=== PATIENT | female | born 1950 | race Caucasian/White ===

== ENCOUNTER 2019-01-23 09:59 | Outpatient (REF) | payer OTHER, SELFPAY ==
[2019-01-23 13:57] LABS: Anion Gap 8.7 mmol/L (3-11); BUN 15 mg/dL (7-18); CO2 28.3 mmol/L (21.0-32.0); CREATININE 0.76 mg/dL (0.55-1.02); Calcium 9.2 mg/dL (8.5-10.1); Chloride 104 mmol/L (98-107); Cholesterol 235 mg/dL (50-200); Glucose 90 mg/dL (70-100); HDL Cholesterol 72 mg/dL (40-60); LDL CHOLESTEROL 143 mg/dL (<100); Potassium 3.8 mmol/L (3.5-5.1); Sodium 141 mmol/L (136-145); Triglyceride 86 mg/dL (30-150)
== END 2019-01-23 10:19 ==
LOC: NCHCN 09:59
PROVIDERS: PCP Family Medicine; Visit Provider Nurse Practitioner Family
DX: E78.5 Hyperlipidemia, unspecified (principal)
CPT/HCPCS: 80048; 80061; 83721

== ENCOUNTER 2019-01-31 01:04 | Outpatient (CLI) | payer OTHER, SELFPAY ==
--- NOTE | 2019-01-31 13:11 | DI.MAMMO_ITS ---
SYMPTOMS/DIAGNOSIS: SCREENING, Z12.39 MAMMOGRAM: Mammograms were interpreted according to the usual protocol including computer analysis with CAD system, tomosynthesis and C view imaging. Comparison is made with exams from 2010 through 2017. The breasts are composed of fatty density tissue. There are no suspicious masses or suspicious microcalcifications. There has been no significant change. IMPRESSION: Category I, negative mammogram. Yearly screening mammography is recommended. Breast density A. MQSA ASSESSMENT OF FINDINGS: Negative. Category 1. Patient will receive a letter notifying them of these results. BI-RAD category A. The breasts are almost entirely fatty.
== END 2019-01-31 01:24 ==
PROVIDERS: PCP Family Medicine; Visit Provider Nurse Practitioner Family
DX: Z12.31 Encounter for screening mammogram for malignant neoplasm of breast (principal)
CPT/HCPCS: 77063; 77067

== ENCOUNTER → 2019-05-04 10:46 | Outpatient (BNVA) | payer OTHER, SELFPAY | PROVIDERS: PCP Family Medicine; Referring Provider Family Medicine; Visit Provider Physical Therapy Assistant | DX: Z12.11 Encounter for screening for malignant neoplasm of colon (principal); Z86.010 Personal history of colon polyps ==

== ENCOUNTER 2019-05-15 09:37 | Day surgery (SDC) | payer OTHER, SELFPAY ==
--- NOTE | 2019-05-15 07:00 | COLE_ITS ---
Date of service: 05/15/19 Time of Service: 10:45 Colonoscopy Report Date of procedure: 05/15/19 Pre-op diagnosis general: Hx of tubular adenoma Post-op diagnosis procedure note: other (Colorectal polyps) Procedure: Colonoscopy with polypectomy Surgeon: Bina Clayton Anesthesia proc note operative: other (General/ ASA 2/Marcella Phoenix CRNA) Estimated blood loss (mL): 3 Pathology: other (transverse colon polyp x2, rectal polyp x2) Complications: None Disposition: same day Indications: Mrs. Lundberg is a pleasant 68 year old female seen in the office for a colonoscopy. She was noted to have a tubular adenoma in 2008. Risks, benefits and complications have been reviewed. Complications include but are not limited to bleeding, pain, perforation, missed small lesion/polyp, sore throat, aspiration and adverse reaction to the medications. Questions were entertained and answered to their satisfaction and they wished to proceed. No guarantees were given or implied. Prep: Miralax/Dulcolax Procedure Start Time: 10:45 Procedure End Time: 11:19 Retraction Time: 27 minutes Findings: 2 sessile polyps in the transverse colon 2 rectal polyps in the rectum Procedure Description: After informed consent was obtained the patient was taken to the procedure room and placed in a left decubitous position. Monitors were applied and a time out was done. The patients name, date of , procedure, allergies to medications and metal in their body was reviewed. The patient was then sedated. Once sedated and comfortable a rectal exam was done. External exam was normal. Internal exam revealed a normal sphincter tone and no palpable mas ses. The scope was then introduced and retro-flexed. No internal hemorrhoids were identified. The scope was then advanced to the cecum without difficulty. The TI and appendiceal orifice were identified. The prep was adequate. The scope was then slowly retracted over 27 minutes back into the rectum. Polyps were removed x2 with hot snare and cold forceps in the transverse colon. 2 polyps w ere removed with cold forceps in the rectum. The scope was removed and the patient was woken up and taken back to Same day surgery in stable condition. The patient tolerated the procedure well and there were no immediate complications. Follow up: The patient should follow up in 3-5 years unless they develop changes in bowel habits or other new gastrointestinal complaints.
--- NOTE | 2019-05-15 07:01 | W.PM.DSUDISC ---
Discharge Plan Disposition Patient Disposition: HOME Condition: Good Discharge Details Reason For Visit: Hx of colon polyps Attending Provider: Bina Clayton Primary Care Provider: Stephany Brantley Home Meds and New Rx's Prescriptions: Continued ibuprofen 200 mg tablet 200 mg PO PRN RF: 0 Discontinued polyethylene glycol 3350 17 gram/dose powder 238 g PO ONCE Qty: 238 RF: 0 bisacodyl [Dulcolax (bisacodyl)] 5 mg tablet,delayed release (DR/EC) 5 mg PO ONCE Qty: 4 RF: 0 Discharge Instructions Instructions: Colonoscopy (GEN), Colorectal Polyps (GEN) Additional Instructions: Findings: 4 polyps were removed Follow up: 3-5 years Please call if you develop: fevers >101.5 Nausea or Vomiting Abdominal pain that is not transient DAY SURGERY UNIT POST COLONOSCOPY INSTRUCTIONS 1. Because there will be medication in your system for the next 24 hours, you may feel a little sleepy. Your coordination will be affected. Therefore: a. Do not drive or operate dangerous equipment for 24 hours. b. Do not drink alcohol beverages for 24 hours (not even beer). c. Plan to go home and rest for the day. 2. Generally there are no restrictions on your activity after a day or so has gone by, but you may feel a bit fatigued for a few days. 3 After you arrive home you may have a light meal and return to a normal diet as you can tolerate it without feeling sick to your stomach. 4. After surgery, you may feel pain or discomfort. This should be only transient, but if it persists please contact your doctor. 5. If there are any questions regarding the findings of your procedure, please feel free to contact your doctor. 6. If you are unable to contact your doctor with a problem, contact the hospital at [phone]. 7. Continue all your regular medications unless directed otherwise. I understand the above instructions and have no questions. Signature of Patient or Responsible Adult Escort Date/Time Name of Responsible Adult Escort Signature of Nurse Date/Time Activity:: Activity as Tolerated Diet:: As Tolerated Discharge Orders Discharge Orders: Discharge Order (Routine); Ordered 05/15/19 Ordered By: Bina Clayton DS: Diagnosis Discharge Diagnosis (1) History of colonoscopy: Status: Chronic (2) Colorectal polyps:
[2019-05-15 10:01] VITALS: BP 175/81; PULSE 63; RESP 18; TEMP 36.1; O2SAT 98
[2019-05-15] MEDS: Lactated Ringers 1,000 ML 80 ML IV (10:23)
--- NOTE | 2019-05-15 10:57 | BOWEL_PTH ---
PATIENT: Elaine Lundberg LOC: [facility] U#:[id number] AGE/SX: 68/F ROOM: RE05/15/[address]: Bina Clayton MD : 1950 BED: DIS: 05/15/2019 SPEC #: [id number] RECD: 05/15/19 12:55 STATUS: PEGGY REQ #: [id number] STARLA: 05/15/19 10:[address]: Bina Clayton DEPT: Surgical Specimen RECD BY: Jennifer Clayton ENTERED: 05/15/19 12:56 SP TYPE: Bowel OTHR DR: Stephany Brantley Tissues: 1 - BIOPSY BOWEL 2 - BIOPSY BOWEL Procedures: GROSS AND MICRO LEVEL 4 Comments: [id number]
[2019-05-15 11:49] VITALS: BP 135/78; PULSE 53; RESP 16; TEMP 35.8; O2SAT 99
== END 2019-05-15 12:00 | disposition home or self-care (01) ==
LOC: SUR 09:45
PROVIDERS: PCP Family Medicine; Visit Provider Surgery
PROC: 0DJD8ZZ Inspection of Lower Intestinal Tract, Via Natural or Artificial Opening Endoscopic (ICD-10-PCS; CPT 45378; principal; 2019-05-15 11:15)
DX: Z12.11 Encounter for screening for malignant neoplasm of colon (principal); Z86.010 Personal history of colon polyps; Z87.19 Personal history of other diseases of the digestive system; D12.3 Benign neoplasm of transverse colon; K62.1 Rectal polyp
CPT/HCPCS: 45385; 45380; 88305

== ENCOUNTER 2021-06-10 09:37 | Outpatient (REF) | payer OTHER, SELFPAY ==
[2021-06-10 17:25] LABS: Anion Gap 5.8 mmol/L (3-11); BUN 12 mg/dL (7-18); CO2 32.2 mmol/L (21.0-32.0); CREATININE 0.8 mg/dL (0.55-1.02); Calcium 8.9 mg/dL (8.5-10.1); Calculated LDL 206 mg/dL (<100); Chloride 104 mmol/L (98-107); Cholesterol 309 mg/dL (<200); Glucose 88 mg/dL (74-106); HDL Cholesterol 78 mg/dL (40-60); Potassium 4.2 mmol/L (3.5-5.1); Sodium 142 mmol/L (136-145); Triglyceride 128 mg/dL (<150)
== END 2021-06-10 09:38 | disposition home or self-care (01) ==
LOC: NCHCN 09:37
PROVIDERS: PCP Family Medicine; Referring Provider Nurse Practitioner Family; Visit Provider Nurse Practitioner Family
DX: E78.5 Hyperlipidemia, unspecified (principal); Z00.00 Encounter for general adult medical examination without abnormal findings
CPT/HCPCS: 80048; 80061

== ENCOUNTER 2022-01-21 14:50 | Outpatient (REF) | payer MEDICARE, SELFPAY ==
[2022-01-21 14:54] LABS: Anion Gap 8.2 mmol/L (3-11); BUN 14 mg/dL (7-18); CO2 29.8 mmol/L (21.0-32.0); CREATININE 0.8 mg/dL (0.55-1.02); Calculated LDL 159 mg/dL (<100); Chloride 103 mmol/L (98-107); Cholesterol 262 mg/dL (<200); Glucose 84 mg/dL (74-106); HDL Cholesterol 77 mg/dL (40-60); Potassium 4.1 mmol/L (3.5-5.1); Sodium 141 mmol/L (136-145); Triglyceride 130 mg/dL (<150)
== END 2022-01-21 14:51 | disposition home or self-care (01) ==
LOC: NCHCN 14:50
PROVIDERS: PCP Family Medicine; Visit Provider Nurse Practitioner Family
DX: E78.5 Hyperlipidemia, unspecified (principal)
CPT/HCPCS: 80048; 80061

== ENCOUNTER 2022-02-09 11:00 | Outpatient (CLI) | payer MEDICARE, SELFPAY ==
--- NOTE | 2022-02-09 10:45 | DI.RAD_ITS ---
Exam(s) XR HIP LT COMPLETE AP PELVIS EXAM: XR HIP LT COMPLETE AP PELVIS INDICATION: pain in hip. COMPARISON: No exams were available for comparison TECHNIQUE: 2D digital imaging was performed. Two views. FINDINGS: Hip joint spaces are well maintained. There is no significant acetabular spurring. There is mild sp urring at the margin of the left femoral head. There is some spurring at the inferior SI joints. Th ere is narrowing of the L5-S1 disc space. IMPRESSION: Mild degenerative changes of the left hip. DATA REPOSITORY: RADIATION DOSE DELIVERED:
== END 2022-02-09 11:01 | disposition home or self-care (01) ==
LOC: DIORS 11:01
PROVIDERS: PCP Family Medicine; Referring Provider Family Medicine; Visit Provider Physician Assistant Surgical
DX: M70.62 Trochanteric bursitis, left hip
CPT/HCPCS: 20610; 99214; 73502; J1040

== ENCOUNTER → 2022-04-08 00:29 | Outpatient (CLI) | payer MEDICARE, SELFPAY ==
--- NOTE | 2022-04-08 | DI.MAMMO_ITS ---
Exam(s) MAMMO SCREENING EXAM: MAMMO SCREENING CLINICAL HISTORY: SCREENING FOR BREAST CA, Z12.39 TECHNIQUE: Mammograms were interpreted according to the usual protocol including computer analysis w [employer] CAD system, tomosynthesis and C-view imaging. COMPARISON: 2012 through 2018 FINDINGS: The breasts are composed of mainly fatty density , Breast Density category A. No suspicious masses or suspicious microcalcifications are seen. No skin thickening or abnormal axillary lymph nodes are seen. There has been no significant change from prior exams. IMPRESSION: BI-RADS Category 1, Negative mammogram Yearly screening mammography is recommended. Breast Density - Category A, fatty density. A negative radiographic report should not delay biopsy if a dominant or clinically suspicious mass is present. Up to ten percent of cancers are not identified on mammography. A negative report may reinforce clinical impression. Adenosis and dense breasts may obscure an underlying neoplasm. False positive reports average 6 to 10%. Patient will receive a letter notifying them of these results.
--- OUTSIDE RECORDS SUMMARY | 2022-04-08 00:32 | XMS_ITS | Encounter Summary ---
:1950 Author Organization [facility] Address [address] [place] [address] Care Team Providers Name Role Phone Unknown, Provider Primary Care Provider Encounter Details Date Type Department Care Team Description 10/12/2005 Results Only [facility] - Stefan Cao MD Maple conversion [address] [place] [address] [id number] [phone] Social History Tobacco Use Types Packs/Day Years Used Date Never Assessed Sex Assigned at Date Recorded Not on file documented as of this encounter Plan of Treatment Not on filedocumented as of this encounter Procedures Procedure Name Priority Date/Time Associated Diagnosis Comme [facility] SURGICAL PATHOLOGY Routine 10/12/2005 0:00 EST Re sults for this procedure are i n the results section. documented in this encounter Results SURGICAL PATHOLOGY (10/12/2005 0:00 EST) Pathology Report: SURGICAL PATHOLOGY REPORT [facility] Reports generated via electronic interface contain charlotte ginal data; LAB however they are lacking the format of the original re port. Caution should be taken when reading/interpreting unfo rmatted reports. Name: ? ELAINE CLEMENTS ? Accession #: ? [id number] ? : ? 1950 (Age: 54) ??F ? Collect Date: ? 10/12/2005 ? Location: ? [facility] ? Receive Date: ? 10/13/19 06 ? Provider: LUISA CAO MD Copy to: NIKOLAI ALBERT MD ? Addendum ? Date Ordered: ? 11/20/2005 ? Status: Si gned Out ? Date Complete: ? 11/20/2005 ? By: Apryl Jhaveri ? Date Reported: ? 11/23/2005 ? Addendum Comment ? THIS SPECIMEN DOES NOT BELONG TO THIS [facility] On 10/28/05, we were informed by the [facility] laboratory that the date of and social security number on this report did no t match those of their patient. ??The case is re-ac cessioned to the correct patient as [id number]; charges are moved to the correct patient; the slides and block s are relabelled. /[facility] Document reviewed and electronically signed by: ? LIOR SONG MD for LAURE COLE MD ? Report date: 11/23/2005 By the signature above, the attending physician certif ies that he/she has personally conducted a gross and/or microscopic examin ation of the described specimens and rendered or confirmed the above diagnosi s. Final Pathologic Diagnosis: A. ?Colon, 20 cm, polyp, biopsy: 1. ?Tubulovillous adenoma. B. ?Colon, hepatic flexure, biopsies: 1. ?Adenocarcin dustin, invasive, moderately differentiated. ??See comment. Comment: ? Financial Specialist sectio ns of (B) have been reviewed at the intradepartmental consultation conference. ??(Dr. Cole)/[facility] Document reviewed and electronically signed by: LAURE COLE MD Report ??Date: 10/14/2005 14:16 By the signature above, the attending physician certif ies that he/she has personally conducted a gross and/or microscopic examin ation of the described specimens and rendered or confirmed the above diagnosi s. Specimen(s) Received: A. ?Colon lesion 20 cm, broad based 2 cm lesion (#1) B. ?Colon lesio n hepatic flexure (fungating, ulcerated lesion) (#2) Clinical History: ? Anemia; colonoscopy Gross Description: ? Received in Hollande' s fixative labeled Toño and colon polyp 20 cm are four pieces of soft tissue ranging from 0.2 x 0.2 x 0.2 cm to 0.4 x 0.3 x 0.2 cm. ??The specimen is entirely submitted as (A). Received in Hollande' s fixative labeled Toño and colon lesion hepatic flexure is a 1.1 x 0.5 x 0. 3 cm aggregate of medel-brown tissue. ??The specimen is submitted entirely as (B) following filtration. ??(Dr. Hudson-DOUG)/[facility] End of Report Specimen Performing Organization Address City/State/ZIP Code Phon e Number [facility] [address] [place] [address] SERVICES [facility] [address] [place] [address] documented in this encounter Visit Diagnoses Not on filedocumented in this encounter Care Teams Governor Assembler Relationship Specialty Start Date End Date Unknown, Provider, PCP - General 02/15/09 documented as of this encounter
--- OUTSIDE RECORDS SUMMARY | 2022-04-08 00:32 | XMS_ITS | Clinical Summary ---
:1950 Author Organization [facility] Address [address] [place] [address] Care Team Providers Name Role Phone Unknown, Provider Primary Care Provider Social History Tobacco Use Types Packs/Day Years Used Date Never Assessed Sex Assigned at Date Recorded Not on file Plan of Treatment Health Maintenance Due Date Last Done Comments Fall Risk Screening 2016 Care Teams Load Checker Relationship Specialty Start Date End Date Unknown, Provider, PCP - General 02/15/09
--- OUTSIDE RECORDS SUMMARY | 2022-04-08 00:32 | XMS_ITS | Encounter Summary ---
:1950 Author Organization [facility] Address [address] [place] [address] Care Team Providers Name Role Phone Unknown, Provider Primary Care Provider Encounter Details Date Type Department Care Team Description 05/15/2019 Results Only [facility]- Ailyn Johns, [address] [place] [address] [address] [place], [place] [phone] (Wo rk) Social History Tobacco Use Types Packs/Day Years Used Date Never Assessed Sex Assigned at Date Recorded Not on file documented as of this encounter Plan of Treatment Not on filedocumented as of this encounter Procedures Procedure Name Priority Date/Time Associated Diagnosis Comme nts SURGICAL PATHOLOGY Routine 05/15/2019 16:23 Resul ts for this EDT procedure are i n the results section. documented in this encounter Results SURGICAL PATHOLOGY (05/15/2019 16:23 EDT) Pathology Report: SURGICAL PATHOLOGY REPORT [facility] Reports generated via electronic interface contain charlotte ginal data; LABORATORY however they are lacking the format of the original re port. SERVICES Caution should be taken when reading/interpreting unfo rmatted reports. Name: ? ELAINE CLEMENTS ? Accession #: ? [id number] ? : ? 1950 (Age: 68 ) ??F ? Collect Date: ? 05/15/2019 ? Location: ? [facility] ? Receive Date: ? 05/15/20 19 ? Provider: AILYN LERMA MD Copy to: LEIGHTON JOHNSON MD ? Final Pathologic Diagnosis: A. COLON, TRANSVERSE, POLYP X2, BIOPSIES: - Fragments of tubular adenoma(s). B. RECTUM, POLYP, BIOPSY: - Hyperplastic polyp. Document reviewed and electronically signed by: FERNY GARLAND MD Report ??Date: 05/16/2019 16:27 By the signature above, the attending physician certif ies that he/she has personally conducted a gross and/or microscopic examin ation of the described specimens and rendered or confirmed the above diagnosi s. Specimen(s) Received: A. ??Transverse colon polyps x2 B. ??Rectal polyp Clinical History: H/O colon polyp Gross Description: A. ?Received in formalin labelled with proper p atient identification (initials R, P) and 1. Dobbins sverse colon polyps x2 is an aggregate of medel-pink tissue fragments (1.0 x 0.7 x 0.2 cm). Submitted in to to in A1. B. ?Received in formalin labelled with proper p atient identification (initials R, P) and 2. Rectal polyp ar e two medel-pink tissue fragments (0.3 x 0.2 x 0.1 cm and 0.4 x 0.2 x 0.1 cm). Submitted in tot o in B1. RAJEEV Boo (ASCP) 05/15/2019 5:12 PM End of Report Specimen Performing Organization Address City/State/ZIP Code Phon e Number [facility] [address] [place] [address] SERVICES documented in this encounter Visit Diagnoses Not on filedocumented in this encounter Care Teams Group Home Supervisor Relationship Specialty Start Date End Date Unknown, Provider, PCP - General 02/15/09 documented as of this encounter
--- OUTSIDE RECORDS SUMMARY | 2022-04-08 00:32 | XMS_ITS | Encounter Summary ---
:1950 Author Organization [facility] Address [address] [place] [address] Care Team Providers Name Role Phone Unknown, Provider Primary Care Provider Encounter Details Date Type Department Care Team Description 05/20/2009 Orders Only [facility] Trevon Campos, LICENSE AND PERMIT SPECIALIST Laboratory Services - [address] [place] [address] [address] [place] [address] [phone] Social History Tobacco Use Types Packs/Day Years Used Date Never Assessed Sex Assigned at Date Recorded Not on file documented as of this encounter Plan of Treatment Not on filedocumented as of this encounter Procedures Procedure Name Priority Date/Time Associated Comments Diagnosis HPV DETECTION, HIGH Routine 05/20/2009 10:48 Resu lts for this RISK TYPES EDT procedure are i n the results section. CYTOPATHOLOGY Routine 05/20/2009 0:00 Results for this EDT procedure are i n the results section. documented in this encounter Results HUMAN PAPILLOMA VIRUS DNA TEST (05/20/2009 10:48 EDT) Specimen Description Cervix, ThinPrep [facility] vial Result Negative for HPV [facility] types 16, 18, 31, 33, 35, 39, 45, 51, 52, 56, 58, 59, and 68. Report Status Final [facility] 06/05/2009 Specimen Performing Organization Address City/State/ZIP Code Phon e Number [facility] [address] [place] [address] SERVICES [facility] [address] [place] [address] CYTOPATHOLOGY (05/20/2009 0:00 EDT) Pathology Report: CYTOPATHOLOGY REPORT ? [facility] Reports generated via electr onic interface contain original data; ? however they are lacking the format of the original report. ? Caution should be taken when reading/interpreting unformatted reports. ? Name: ? ELAINE CLEMENTS ? Accession #: ? [id number] ? : ? 1950 (Age: 58) ??F ?Collect Date: ? 05/20/2009 ? Location: ? [facility] ? Receive Date: ? 05/21/2009 ? Provider: ?JOSE DAVID BHAGAT OOD LICENSE AND PERMIT SPECIALIST ? Copy to: ? Specimen/Source: ? Pap Test, Cervix/Endocervix, ThinPrep Imaging System ? with manual evaluation ? Last Menstrual Period: ? 3/5/06 ? Previous Gynecologic Patholo gy: ? Yes: abnormal paps 1980's ? Benign cellular changes: 11/ 00 ? Other: ? HPVDX - HPV testing requeste d regardless of diagnosis on current ThinPrep Pap ?? test. ? SPECIMEN ADEQUACY ? Satisfactory for Eval uation ? - transformation zone compon ent present ? GENERAL CATEGORIZATION ? Negative for Intraepi thelial Lesion or Malignancy ? INTERPRETATION ? Reactive cellular jeremiah nges associated with inflammation present (includes ?? repair). ? Fungal organisms present mor phologically consistent with Sena species. ? Document reviewed and electr onically signed by: ? Paulina L. Dennison, MD ? Report Date: ??09/09/ 2009 16:50 ? End of Report ? Specimen Performing Organization Address City/State/[facility] Code Phon e Number [facility] [address] [place] [address] SERVICES [facility] [address] [place] [address] documented in this encounter Visit Diagnoses Not on filedocumented in this encounter Care Teams Coding Compliance Auditor Relationship Specialty Start Date End Date Unknown, Provider, PCP - General 02/15/09 documented as of this encounter
--- OUTSIDE RECORDS SUMMARY | 2022-04-08 00:32 | XMS_ITS | Encounter Summary ---
:1950 Author Organization [facility] Address [address] [place] [address] Care Team Providers Name Role Phone Unknown, Provider Primary Care Provider Encounter Details Date Type Department Care Team Description 08/05/[address] [facility] - Maricruz Mckeon od, Sandra Tejeda, CAREER DEVELOPMENT COUNSELOR conversion [address] [place] [phone] (Wo rk) Social History Tobacco Use Types Packs/Day Years Used Date Never Assessed Sex Assigned at Date Recorded Not on file documented as of this encounter Plan of Treatment Not on filedocumented as of this encounter Procedures Procedure Name Priority Date/Time Associated Diagnosis Comme nts CYTOPATHOLOGY Routine 08/05/2001 0:00 EST Results for this procedure are i n the results section . documented in this encounter Results CYTOPATHOLOGY (08/05/2001 0:00 EST) Pathology Report: CYTOPATHOLOGY REPORT [facility] Reports generated via electronic interface contain charlotte ginal data; however they are lacking the format of the original re port. Caution should be taken when reading/interpreting unfo rmatted reports. Name: ? ELAINE CLEMENTS ? Accession #: ? [id number] : ? 1950 (Age: 50) ??F ?Collect Date: ? 07/21 Location: ? [facility] ? Receive Date : ? 08/09/2001 Provider: ?SANDRA BUENO CAREER DEVELOPMENT COUNSELOR Copy to: ? Specimen/Source: ?ThinPrep Pap Test, Cervix/ Endocervix Last Menstrual Period: ? 07/12/01 Previous Gynecologic Pathology: ? Benign cellular changes: Yes: abnormal paps (2) in within normal limits since ? SPECIMEN ADEQUACY ? Satisfactory for evaluation. GENERAL CATEGORIZATION ? Within Normal Limits ? Document reviewed and electronically signed by: ? DAGMAR Zuniga(ASCP) ? Report Date: ??08/16/2001 10:04 End of Report Specimen Performing Organization Address City/State/[facility] Code Phon e Number [facility] [address] [place] [address] SERVICES [facility] [address] [place] [address] documented in this encounter Visit Diagnoses Not on filedocumented in this encounter Care Teams Operations Support Coordinator Relationship Specialty Start Date End Date Unknown, Provider, PCP - General 02/15/09 documented as of this encounter
--- OUTSIDE RECORDS SUMMARY | 2022-04-08 00:32 | XMS_ITS | Encounter Summary ---
:1950 Author Organization [facility] Address [address] [place] [address] Care Team Providers Name Role Phone Unknown, Provider Primary Care Provider Encounter Details Date Type Department Care Team Description 01/24/2013 Results Only [facility] Trevon Campos, DISPUTE RESOLUTION SPECIALIST Laboratory Services - [address] [facility] [address] [place] [address] [address] [place] [address] [phone] Social History Tobacco Use Types Packs/Day Years Used Date Never Assessed Sex Assigned at Date Recorded Not on file documented as of this encounter Plan of Treatment Not on filedocumented as of this encounter Procedures Procedure Name Priority Date/Time Associated Diagnosis Comme nts PAP TEST- RESULT Routine 01/24/2013 0:00 EDT Resu lts for this ONLY procedure are i n the results section. documented in this encounter Results PAP TEST- RESULT ONLY (01/24/2013 0:00 EDT) Pathology Report: CYTOPATHOLOGY REPORT [facility] Reports generated via electronic interface contain chalrotte ginal data; however they are lacking the format of the original re port. Caution should be taken when reading/interpreting unfo rmatted reports. Name: ? ELAINE CLEMENTS ? Accession #: ? [id number] ? : ? 1950 (Age: 62) ??F ?Collect Da te: ? 01/24/2013 ? Location: ? [facility] ? Receive Date: ? 013 ? Provider: JOSE DAVID CAMPOS [facility] Copy to: LEIGHTON JOHNSON MD ? Final Report SPECIMEN ADEQUACY ? Satisfactory for Evaluation - transformation zone component present GENERAL CATEGORIZATION ? Negative for Intraepithelial Lesion or Malignan cy ?? Last Menstrual Period: 2002 Previous Gynecologic Pathology: Yes: abnormal paps 198 0's Benign cellular changes: Specimen/Source: ??Pap Test, Cervix/Endocervix, ThinPr ep Imaging System with manual evaluation Document reviewed and electronically signed by: ? DAGMAR Carrera(ASCP) ? Report ??Date: 01/31/2013 12:12 HPV with Pap Test ? Date Ordered: ? 01/31/2013 ? Status: ?? Signed Out ?Date Complete: ? 02/02/2013 ? By: ??S ystem Interface ? Date Reported: ? 02/02/2013 ? Interpretation RESULT: Negative for HPV. No E6 or E7 mRNA is detected from HPV types 16,18,31,3 3,35, 39,45,51,52,56,58,59,66, and 68 by senior it recruiter media lorena amplification. Comments Document reviewed and electronically signed by: ? System Interface ? Report date: 02/02/2013 By the signature above, the attending physician certif ies that he/she has personally conducted a gross and/or microscopic examin ation of the described specimens and rendered or confirmed the above diagnosi s. End of Report Specimen Performing Organization Address City/State/ZIP Code Phon e Number [facility] [address] [place] [address] SERVICES [facility] [address] [place] [address] documented in this encounter Visit Diagnoses Not on filedocumented in this encounter Care Teams Chip Mucker Relationship Specialty Start Date End Date Unknown, Provider, PCP - General 02/15/09 documented as of this encounter
--- OUTSIDE RECORDS SUMMARY | 2022-04-08 00:32 | XMS_ITS | Encounter Summary ---
:1950 Author Organization [facility] Address [address] [place] [address] Care Team Providers Name Role Phone Unknown, Provider Primary Care Provider Encounter Details Date Type Department Care Team Description 07/13/2006 Results Only [facility] - Maricruz Mckeon od, Sandra Tejeda, CLOTHES DESIGNER conversion [address] [place] [phone] (Wo rk) Social History Tobacco Use Types Packs/Day Years Used Date Never Assessed Sex Assigned at Date Recorded Not on file documented as of this encounter Plan of Treatment Not on filedocumented as of this encounter Procedures Procedure Name Priority Date/Time Associated Diagnosis Comme nts CYTOPATHOLOGY Routine 07/13/2006 0:00 EDT Results for this procedure are i n the results section . documented in this encounter Results CYTOPATHOLOGY (07/13/2006 0:00 EDT) Pathology Report: CYTOPATHOLOGY REPORT [facility] Reports generated via electronic interface contain charlotte ginal data; however they are lacking the format of the original re port. Caution should be taken when reading/interpreting unfo rmatted reports. Name: ? ELAINE CLEMENTS ? Accession #: ? [id number] : ? 1950 (Age: 55) ??F ?Collect Date: ? 06/21 Location: ? [facility] ? Receive Date : ? 07/14/2006 Provider: ?SANDRA BUENO CLOTHES DESIGNER Copy to: ? Specimen/Source: ? ThinPrep Pap Test, Cervix/Endocervix, processed on [employer] ThinPrep Imaging System, with manual evaluation Last Menstrual Period: ? 11/22/05 Previous Gynecologic Pathology: ? Benign cellular changes: Other: ? Additional clinical information: Abn paps HPVA - HPV testing requested if ASC-US on the current ThinPrep Pap test. ? SPECIMEN ADEQUACY ? Satisfactory for Evaluation - transformation zone component present GENERAL CATEGORIZATION ? Negative for Intraepithelial Lesion or Malignan cy ? Document reviewed and electronically signed by: ? DAGMAR Gunn(ASCP) ? Report Date: ??07/19/2006 10:06 End of Report Specimen Performing Organization Address City/State/ZIP Code Phon e Number [facility] [address] [place] [address] SERVICES [facility] [address] [place] [address] documented in this encounter Visit Diagnoses Not on filedocumented in this encounter Care Teams Wire Fence Erector Relationship Specialty Start Date End Date Unknown, Provider, PCP - General 02/15/09 documented as of this encounter
--- OUTSIDE RECORDS SUMMARY | 2022-04-08 00:32 | XMS_ITS | Encounter Summary ---
:1950 Author Organization [facility] Address [address] [place] [address] Care Team Providers Name Role Phone Unknown, Provider Primary Care Provider Encounter Details Date Type Department Care Team Description 11/10/2002 Results Only [facility] - Maricruz Mckeon od, Sandra Tejeda, DETENTION DEPUTY conversion [address] [place] [phone] (Wo rk) Social History Tobacco Use Types Packs/Day Years Used Date Never Assessed Sex Assigned at Date Recorded Not on file documented as of this encounter Plan of Treatment Not on filedocumented as of this encounter Procedures Procedure Name Priority Date/Time Associated Diagnosis Comme nts CYTOPATHOLOGY Routine 11/10/2002 0:00 EST Results for this procedure are i n the results section . documented in this encounter Results CYTOPATHOLOGY (11/10/2002 0:00 EST) Pathology Report: CYTOPATHOLOGY REPORT [facility] Reports generated via electronic interface contain charlotte ginal data; however they are lacking the format of the original re port. Caution should be taken when reading/interpreting unfo rmatted reports. Name: ? ELAINE CLEMENTS ? Accession #: ? [id number] : ? 1950 (Age: 52) ??F ?Collect Date: ? 10/22 Location: ? [facility] ? Receive Date : ? 11/13/2002 Provider: ?SANDRA BUENO DETENTION DEPUTY Copy to: ? Specimen/Source: ?ThinPrep Pap Test, Cervix/ Endocervix Last Menstrual Period: ? 10/25/02 Previous Gynecologic Pathology: ? Yes: 2 abn. paps , wnl since Benign cellular changes: ? SPECIMEN ADEQUACY ? Satisfactory for Evaluation - transformation zone component absent GENERAL CATEGORIZATION ? Negative for Intraepithelial Lesion or Malignan cy ? Document reviewed and electronically signed by: ? DAGMAR Gunn(ASCP) ? Report Date: ??11/14/2002 15:03 End of Report Specimen Performing Organization Address City/State/ZIP Code Phon e Number [facility] [address] [place] [address] SERVICES [facility] [address] [place] [address] documented in this encounter Visit Diagnoses Not on filedocumented in this encounter Care Teams Financial Advisor Trainee Relationship Specialty Start Date End Date Unknown, Provider, PCP - General 02/15/09 documented as of this encounter
--- OUTSIDE RECORDS SUMMARY | 2022-04-08 00:32 | XMS_ITS | Encounter Summary ---
:[address] [facility] Address [address] [place] [address] Care Team Providers Name Role Phone Unavailable Primary Care Provider Unavailable Encounter Details Date Type Department Care Team Description 02/13/2009 Orders Only [facility] Edin Amin MD [facility] [address] [place] [id number] [place] [address] [id number] [phone] Social History Tobacco Use Types Packs/Day Years Used Date Never Assessed Sex Assigned at Date Recorded Not on file documented as of this encounter Plan of Treatment Not on filedocumented as of this encounter Procedures Procedure Name Priority Date/Time Associated Diagnosis Comme nts SURGICAL PATHOLOGY Routine 02/13/2009 0:00 EDT Re sults for this procedure are i n the results section. documented in this encounter Results SURGICAL PATHOLOGY (02/13/2009 0:00 EDT) Pathology Report: SURGICAL PATHOLOGY REPORT ? [facility] Reports generated via [employer] interface contain original data; ? LAB however they are lacking the format of the original report. ? Caution should be taken when reading/interpreting unformatted reports. ? Name: ? TYREE, ELAINE ? Accession #: ? [id number] ? : ? 1950 (Age: 58) ??F ? Collec t Date: ? 02/13/2009 ? Location: ? [facility] ? R eceive Date: ? 02/13/2009 ? Provider: EDIN WALKO MD ? Copy to: VELIA MCGEE FOOD TASTER ? Final Pathologic Diagnosis: ? A. ?Colon, asce nding, polyp, biopsy: ? 1. ?Tubular maria noma. ? B. ?Colon, desc ending, polyps, biopsies: ? 1. ?Tubular maria nomas. ? C. ?Colon, sigm oid, polyp, biopsy: ? 1. ?Hyperplasti c polyp. ? Document reviewed and electr onically signed by: ? Aakash Walden MD ? Report ??Date: 02/15/2009 15 :08 ? By the signature above, the attending physician certifies that he/she has ? personally conducted a gross and/or microscopic examination of the described ? specimens and rendered or co nfirmed the above diagnosis. ? Specimen(s) Received: ? A. ?Ascending c olon polyp ? B. ? Descending colon po lyp x2 ? C. ? Sigmoid polyp ? Clinical History: ? Colorectal screening ? Gross Description: ? Received in [facility] s fixative labelled Tyree Elaine and #1 ? ascending colon polyp is a 0.4 x 0.2 x 0.1 cm polypoid biopsy. ??The specimen is submitted intact as (A). ? Received in [facility]'s fixat saima labelled Tyree Elaine and #2 descending ?? colon polyp x2 are three po lypoid structures which vary in size from 0.6 x 0.3 x 0.2 cm up to 0.9 x 0.6 x 0 .4 cm. ??The resection margins are inked black. ??The specimens are sectioned and submitted from smallest to largest as (B1) through ?? (B3). ? Received in [facility]'s fixat saima labelled Tyree, Elaine and #3 sigmoid ? polyp is a 0.2 x 0.2 x 0.2 cm polyp. ??The specimen is submitted intact as (C). (MONICA Arias)/angelica ? End of Report ? Specimen Performing Organization Address City/State/ZIP Code Phon e Number [facility] [address] [place] [address] SERVICES [facility] [address] [place] [address] documented in this encounter Visit Diagnoses Not on filedocumented in this encounter
--- OUTSIDE RECORDS SUMMARY | 2022-04-08 00:32 | XMS_ITS | Encounter Summary ---
:1950 Author Organization Address [address] [place] [address] Care Team Providers Name Role Phone Unknown, Provider Primary Care Provider Encounter Details Date Type Department Care Team Description 05/18/2008 Before PRISM [facility] - Sandra Campos, Converted Visit Maple conversion WEIGH BOX TENDER (Map) [address] [place] [address] [place], [place] [phone] (Wo rk) Social History Tobacco Use Types Packs/Day Years Used Date Never Assessed Sex Assigned at Date Recorded Not on file documented as of this encounter Plan of Treatment Not on filedocumented as of this encounter Procedures Procedure Name Priority Date/Time Associated Diagnosis Comme nts CYTOPATHOLOGY Routine 05/18/2008 0:00 EDT Results for this procedure are i n the results section . documented in this encounter Results CYTOPATHOLOGY (05/18/2008 0:00 EDT) Pathology Report: CYTOPATHOLOGY REPORT ? [facility] Reports generated via [employer] interface contain original data; ? however they are lacking the format of the original report. ? Caution should be taken when reading/interpreting unformatted reports. ? Name: ? ELAINE CLEMENTS ? Accession #: ? [id number] ? : ? 1950 (Age: 57) ??F ?Collect Date: ? 05/18/2008 ? Location: ? [facility] ? Receive Date: ? 05/22/2008 ? Provider: ?SANDRA FOREMANG OOD WEIGH BOX TENDER ? Copy to: ? Specimen/Source: ? ThinPrep Pap Test, Cervix/Endocervix, processed on [employer] ThinPrep Imaging System, wit h manual evaluation ? Last Menstrual Period: ? 03/05/06 ? Previous Gynecologic Patholo gy: ? Yes: Abn pap 1980's ? Benign cellular changes: 11/ 00 ? Other: ? HPVA - HPV testing requested if ASC-US on the current ThinPrep Pap test. ? SPECIMEN ADEQUACY ? Satisfactory for Eval uation ? - transformation zone compon ent present ? GENERAL CATEGORIZATION ? Negative for Intraepi thelial Lesion or Malignancy ? Document reviewed and electr onically signed by: ? Jovani Herrera, [place] (ASCP) ? Report Date: ??09/05/ 2008 06:49 ? End of Report ? Specimen Performing Organization Address City/[facility] Code Phon e Number [facility] [address] [place] [address] SERVICES [facility] [address] [place] [address] documented in this encounter Visit Diagnoses Not on filedocumented in this encounter Care Teams Assessment Rn Relationship Specialty Start Date End Date Unknown, Provider, PCP - General 02/15/09 documented as of this encounter
--- OUTSIDE RECORDS SUMMARY | 2022-04-08 00:32 | XMS_ITS | Encounter Summary ---
:1950 Author Organization [facility] Address [address] [place] [address] Care Team Providers Name Role Phone Unknown, Provider Primary Care Provider Encounter Details Date Type Department Care Team Description 08/04/2000 Results Only [facility] - Maricruz Mckeon od, Sandra Tejeda, HOSPITAL STAFF PHARMACIST conversion [address] [place] [phone] (Wo rk) Social History Tobacco Use Types Packs/Day Years Used Date Never Assessed Sex Assigned at Date Recorded Not on file documented as of this encounter Plan of Treatment Not on filedocumented as of this encounter Procedures Procedure Name Priority Date/Time Associated Diagnosis Comme nts CYTOPATHOLOGY Routine 08/04/2000 0:00 EST Results for this procedure are i n the results section . documented in this encounter Results CYTOPATHOLOGY (08/04/2000 0:00 EST) Pathology Report: CYTOPATHOLOGY REPORT [facility] Reports generated via electronic interface contain charlotte ginal data; however they are lacking the format of the original re port. Caution should be taken when reading/interpreting unfo rmatted reports. Name: ? ELAINE CLEMENTS ? Accession #: ? [id number] : ? 1950 (Age: 49) ??F ?Collect Date: ? 07/21 Location: ? [facility] ? Receive Date : ? 08/06/2000 Provider: ?SANDRA BUENO HOSPITAL STAFF PHARMACIST Copy to: ? Specimen/Source: ?ThinPrep Pap Test, Cervix/ Endocervix Last Menstrual Period: ? 07/09/00 Previous Gynecologic Pathology: ? Yes Other: ? Additional clinical informat ion: Prev abn pap 2 in , wnl since. wnl. ? SPECIMEN ADEQUACY ? Satisfactory for evaluation. GENERAL CATEGORIZATION ? Benign Cellular Changes DESCRIPTIVE DIAGNOSIS ? Trichomonas vaginalis present. ? Document reviewed and electronically signed by: ? Margaux Alexis, ??[place](ASCP) ? Report Date: ??08/16/2000 15:29 End of Report Specimen Performing Organization Address City/State/ZIP Code Phon e Number [facility] [address] [place] [address] SERVICES [facility] [address] [place] [address] documented in this encounter Visit Diagnoses Not on filedocumented in this encounter Care Teams International Travel Consultant Relationship Specialty Start Date End Date Unknown, Provider, PCP - General 02/15/09 documented as of this encounter
--- OUTSIDE RECORDS SUMMARY | 2022-04-08 00:32 | XMS_ITS | Encounter Summary ---
:1950 Author Organization [facility] Address [address] [place] [address] Care Team Providers Name Role Phone Unknown, Provider Primary Care Provider Encounter Details Date Type Department Care Team Description 05/15/2019 Hospital Encounter [facility]- Iveth Unknown, Provider, [facility] 0 [facility] [phone] [place] [address] (Work) [phone] Social History Tobacco Use Types Packs/Day Years Used Date Never Assessed Sex Assigned at Date Recorded Not on file documented as of this encounter Discharge Disposition Disposition Code Departure Means Destination Home or Self Penitentiary documented in this encounter Plan of Treatment Not on filedocumented as of this encounter Visit Diagnoses Not on filedocumented in this encounter Care Teams Microcomputer Technician Relationship Specialty Start Date End Date Unknown, Provider, PCP - General 02/15/09 documented as of this encounter
--- OUTSIDE RECORDS SUMMARY | 2022-04-08 00:32 | XMS_ITS | Encounter Summary ---
:1950 Author Organization [facility] Address [address] [place] [address] Care Team Providers Name Role Phone Unknown, Provider Primary Care Provider Encounter Details Date Type Department Care Team Description 04/16/2016 Results Only [facility]- Sandra Gotti, [facility] [phone] [place] [address] [place] [phone] (Wo rk) Social History Tobacco Use Types Packs/Day Years Used Date Never Assessed Sex Assigned at Date Recorded Not on file documented as of this encounter Plan of Treatment Not on filedocumented as of this encounter Procedures Procedure Name Priority Date/Time Associated Diagnosis Comme nts PAP TEST- RESULT Routine 04/16/2016 0:00 Results for this ONLY EDT procedure are i n the results section. documented in this encounter Results PAP TEST- RESULT ONLY (04/16/2016 0:00 EDT) Pathology Report: CYTOPATHOLOGY REPORT [facility] Reports generated via electronic interface contain charlotte ginal data; SERVICES however they are lacking the format of the original re port. Caution should be taken when reading/interpreting unfo rmatted reports. Name: ? ELAINE CLEMENTS ? Accession #: ? [id number] ? : ? 1950 (Age: 65 ) ??F ?Collect Date: ? 04/16/2016 ? Location: ? [facility] ? Receive Date: ? 04/17/20 16 ? Provider: SANDRA BUENO METAL FABRICATING SUPERVISOR Copy to: LEIGHTON JOHNSON MD ? Final Report SPECIMEN ADEQUACY ? Satisfactory for Evaluation - transformation zone component present GENERAL CATEGORIZATION ? Negative for Intraepithelial Lesion or Malignan cy ?? Last Menstrual Period: 2003 Other: Additional clinical information: Stenotic OS Specimen/Source: ??Pap Test, Cervix/Endocervix, ThinPr ep Imaging System with manual evaluation Document reviewed and electronically signed by: ? Kelsie Silva, [place](ASCP) ? Report ??Date: 04/27/2016 15:19 HPV with Pap Test ? Date Ordered: ? 04/27/2016 ? Status: ?? S igned Out ?Date Complete: ? 04/30/2016 ? By: ??Sy stem Interface ? Date Reported: ? 04/30/2016 ? Interpretation RESULT: Negative for HPV. No E6 or E7 mRNA is detected from HPV types 16,18,31,3 3,35, 39,45,51,52,56,58,59,66, and 68 by switchgear repairer media lorena amplification. Comments Document reviewed and electronically signed by: ? System Interface ? Report date: 04/30/2016 By the signature above, the attending physician certif ies that he/she has personally conducted a gross and/or microscopic examin ation of the described specimens and rendered or confirmed the above diagnosi s. End of Report Specimen Performing Organization Address City/State/ZIP Code Phon e Number [facility] [address] [place] [address] SERVICES documented in this encounter Visit Diagnoses Not on filedocumented in this encounter Care Teams Stock Control Clerk Relationship Specialty Start Date End Date Unknown, Provider, PCP - General 02/15/09 documented as of this encounter
== END ==
PROVIDERS: PCP Family Medicine; Visit Provider Nurse Practitioner Family
DX: Z12.31 Encounter for screening mammogram for malignant neoplasm of breast (principal); R92.8 Other abnormal and inconclusive findings on diagnostic imaging of breast
CPT/HCPCS: 77063; 77067

== ENCOUNTER 2023-02-26 12:38 | Outpatient (REF) | payer MEDICARE, SELFPAY ==
[2023-02-26 15:50] LABS: Anion Gap 6.9 mmol/L (3-11); BUN 13 mg/dL (7-18); CO2 28.1 mmol/L (21.0-32.0); CREATININE 0.9 mg/dL (0.55-1.02); Calcium 9.3 mg/dL (8.5-10.1); Calculated LDL 171 mg/dL (<100); Chloride 103 mmol/L (98-107); Cholesterol 278 mg/dL (<200); Estimated GFR 68.35 (mL/min/1.73m2); Glucose 89 mg/dL (74-106); HDL Cholesterol 72 mg/dL (40-60); Potassium 4.2 mmol/L (3.5-5.1); Sodium 138 mmol/L (136-145); Triglyceride 178 mg/dL (<150)
== END 2023-02-26 12:39 | disposition home or self-care (01) ==
LOC: NCHCN 12:38
PROVIDERS: PCP Family Medicine; Visit Provider Family Medicine
DX: E78.5 Hyperlipidemia, unspecified (principal)
CPT/HCPCS: 80048; 80061

== ENCOUNTER → 2024-02-21 08:39 | Outpatient (BNVA) | payer MEDICARE, SELFPAY | PROVIDERS: PCP Family Medicine; Referring Provider Family Medicine; Visit Provider Student in an Organized Health Care Education/Training Program | DX: M70.62 Trochanteric bursitis, left hip (principal) | CPT/HCPCS: 20610; J1010 ==

== ENCOUNTER 2024-03-06 11:03 | Outpatient (REF) | payer MEDICARE, SELFPAY ==
[2024-03-06 16:07] LABS: ALT 28 U/L (14-59); AST 15 U/L (15-37); Albumin 3.9 g/dL (3.4-5.0); Alkaline Phosphatase 76 U/L (46-116); BUN 14 mg/dL (7-18); Bilirubin, Total 1.4 mg/dL (0.2-1.0); CREATININE 0.8 mg/dL (0.55-1.02); Calcium 9.5 mg/dL (8.5-10.1); Calculated LDL 90 mg/dL (<100); Chloride 103 mmol/L (98-107); Cholesterol 210 mg/dL (<200); Estimated GFR 78.24 (mL/min/1.73m2); Glucose 89 mg/dL (74-106); HDL Cholesterol 97 mg/dL (40-60); Potassium 4.2 mmol/L (3.5-5.1); Sodium 141 mmol/L (136-145); Total Protein 7.1 g/dL (6.4-8.2); Triglyceride 117 mg/dL (<150)
== END 2024-03-06 11:04 | disposition home or self-care (01) ==
LOC: NCHCN 11:03
PROVIDERS: PCP Family Medicine; Visit Provider Physician Assistant
DX: E78.5 Hyperlipidemia, unspecified (principal)
CPT/HCPCS: 80053; 80061

== ENCOUNTER → 2024-03-16 00:43 | Outpatient (CLI) | payer MEDICARE, SELFPAY ==
--- NOTE | 2024-03-16 11:34 | DI.MAMMO_ITS ---
Exam(s) MAMMO SCREENING EXAM: MAMMO SCREENING CLINICAL HISTORY: SCREENING, Z12.31 TECHNIQUE: Bilateral full field digital CC and MLO mammographic images were obtained with 3D tomosyn thesis and utilizing computer aided detection (CAD). COMPARISON: Available for comparison. FINDINGS: Masses/Architectural Distortion: There is again seen an area of asymmetric breast tissue in the upper left breast on the MLO view. No new nodules are seen. No areas of architectural distortion are pre sent. Microcalcifications: No suspicious pleomorphic-type are seen. Skin Thickening/Nipple Retraction: None. IMPRESSION: 1. No significant interval change with no specific features of malignancy noted. 2. Unless there is more urgent need, screening mammography is recommended, as per [place] [employer] guidelines. BI-RADS Category 2 - Benign Findings Breast Density - Category A - Almost entirely fatty Breast density category C or D implies that the patient has dense breast tissue. Dense breast tissue is very common and is not abnormal but dense breast tissue can make it harder to find cancer on a ma mmogram. Also, dense breast tissue may increase their breast cancer risk. This information about the result of the mammogram report was provided to the patient to raise their awareness. Use this report when you speak with the patient about their risks for breast cancer, which includes their family hist ory. At that time, you may recommend for more screening tests (Ultrasound or MRI) as they might be us eful based on their risk. A negative radiographic report should not delay biopsy if a dominant or clinically suspicious mass is present. Up to ten percent of cancers are not identified on mammography. A negative report may reinforce clinical impression. Adenosis and dense breasts may obscure an underlying neoplasm. False positive reports average 6 to 10%. Patient will receive a letter notifying them of these results.
== END ==
PROVIDERS: PCP Family Medicine; Visit Provider Physician Assistant
DX: Z12.31 Encounter for screening mammogram for malignant neoplasm of breast (principal)
CPT/HCPCS: 77063; 77067

== ENCOUNTER → 2025-01-25 09:55 | Outpatient (BNVA) | payer MEDICARE, SELFPAY | PROVIDERS: PCP Family Medicine; Referring Provider Family Medicine; Visit Provider Physical Therapy Assistant | DX: Z12.11 Encounter for screening for malignant neoplasm of colon (principal); Z86.0101 Personal history of adenomatous and serrated colon polyps ==

== ENCOUNTER 2025-02-16 08:12 | Day surgery (SDC) | payer MEDICARE, SELFPAY ==
--- NOTE | 2025-02-15 16:13 | W.PM.DSUDISC ---
Date of service: 02/16/25 Discharge Plan Disposition Patient Disposition: Home Condition: Good Discharge Details Reason For Visit: Screening colonoscopy Attending Provider: Reyes Castrejon Primary Care Provider: Stephany Brantley Home Meds and New Rx's Prescriptions: Continued atorvastatin 20 mg tablet 20 mg PO DAILY ibuprofen 200 mg tablet 200 mg PO PRN Multi Complete with Iron 18-400 mg-mcg tablet 1 tab PO DAILY Discontinued bisacodyl [Dulcolax (bisacodyl)] 5 mg tablet,delayed release (DR/EC) 5 mg PO ONCE Qty: 4 0RF Rx Instructions: Take per colonoscopy instructions provided by ordering providers office polyethylene glycol 3350 17 gram/dose powder 17 g PO ONCE Qty: 238 0RF Rx Instructions: Take per colonoscopy instructions provided by ordering providers office Discharge Instructions Additional Instructions: 1. If tolerated, consume a soft, low fiber diet for 1-2 days. 2[address] Do not drive, drink alcohol, operate machinery, make critical decisions, or do activities that require coordination or balance for 24 hours. 3. Because air was put into your colon during the procedure, expelling air from your rectum (passing gas or farting) is normal. 4. You may not have a bowel movement for 1-3 days because of the colonoscopy prep. This is normal. 5. Go directly to the emergency room if you notice any of the following: Develop chills (warm to touch), or if you have a thermometer and your temperature is above 101 Difficulty breathing or difficultly swallowing Persistent vomiting Severe abdominal pain, other than gas cramps Severe chest pain Black, tarry stools Any bleeding ? exceeding one tablespoon 6. Call your physician if the site where your intravenous was started becomes red, swollen, painful, and warm to touch. 7. Your physician has reviewed your pre-procedure medications. Please continue to take those medications as previously ordered. You will be given specific information/education regarding any changes to your medications before leaving. Activity:: Activity as Tolerated Diet:: As Tolerated DS: Diagnosis Discharge Diagnosis (1) Encounter for screening colonoscopy: Status: Acute
--- NOTE | 2025-02-15 16:14 | W.COLOREPORT ---
Date of service: 02/16/25 Colonoscopy Report Date of procedure: 02/16/25 Pre-op diagnosis general: Screening colonoscopy Procedure: Colonoscopy Surgeon: Reyes Castrejon Anesthesia Type: General:No Airway Complications: None Disposition: same day Indications: Elaine is a 74-year-old woman with a history of adenomatous polyps who needs a screening colonoscopy. Prep: Miralax/Dulcolax
[2025-02-16 08:29] VITALS: BP 155/85; PULSE 92; RESP 16; TEMP 36.3; O2SAT 97
--- NOTE | 2025-02-16 09:00 | RT.EKG_ITS ---
APPROVED REPORT Exam: Resting ECG Reason for Exam: New onset afib, tachy Patient Location: O HR:107 bpm ECG Measurements Heart Rate 107 AXIS RI [id number] P [id number] QRSd 86 QRS 50 QT 346 T 42 QTc 461 Conclusion Atrial fibrillation...V-rate 88-149, irreg A-activity
--- NOTE | 2025-02-16 09:21 | PDOC.ANES ---
Date of service: 02/16/25 Time of Service: 09:22 Anesthesia Note Report Anesthesia Note: Pt. here today for colonoscopy. DSU RN noted irregular pulse. Placed on Monitor and noted A-fib. I discussed finding with patient who denies history of this and also denies any symptoms at home to include SOB/chest pain/lightheadedness or palpitations. Initially discussed postponing procedure and referring to PCP for followup given HR 80-100 but the more I talked to her the more I noted heart rate 120-140BPM. Given poor rate control she will be evaluated in ED for further therapy. Surgeon aware of plan. Communicated these findings to Dr. Balderrama in ED where pt. will go once EKG and IV are established. Pt. understands plan.
[2025-02-16] MEDS: Lactated Ringers 1,000 ML 80 ML IV (09:40)
== END 2025-02-16 08:13 | disposition home or self-care (01) ==
LOC: SUR 08:12
PROVIDERS: PCP Family Medicine; Visit Provider Surgery
DX: Z12.11 Encounter for screening for malignant neoplasm of colon (principal); I48.91 Unspecified atrial fibrillation; Z53.29 Procedure and treatment not carried out because of patient's decision for other reasons
CPT/HCPCS: 93005; 93010

== ENCOUNTER 2025-02-16 09:53 | Inpatient (IN) | payer MEDICARE, SELFPAY ==
[2025-02-16] VITALS (75 sets, daily range): BP systolic 102–197; BP diastolic 59–98; PULSE 54–121; RESP 12–31; TEMP 36.2–37; O2SAT 93–99
[2025-02-16 10:35] LABS: Abs Immature Grans 0.01 10^3/uL (0.0-0.06); Absolute Basophil Count 0.03 10^3/uL (0.0-0.2); Absolute Eosinophil Count 0.13 10^3/uL (0.0-0.7); Absolute Lymphocyte Count 1.69 10^3/uL (1.2-3.4); Absolute Monocyte Count 0.28 10^3/uL (0.1-0.8); Absolute Neutrophil Count 2.96 10^3/uL (1.2-6.7); Basophils % 0.6 %; Eosinophils % 2.5 %; HCT 42.3 % (36.0-46.0); HGB 14.8 g/dL (11.2-15.7); Immature Grans % 0.2 %; Lymphocytes % 33.1 %; MCH 32.7 pg (27.0-33.0); MCV 94 fL (80-95); MPV 9.4 fL (8.0-11.0); Monocytes % 5.5 %; Neutrophils % 58.1 %; Platelet Count 211 10^3/uL (130-400); RBC 4.52 10^6/uL (3.93-5.22); RDW 12.1 % (11.7-14.6); RDW-SD 41.6 fL
[2025-02-16] MEDS: dilTIAZem 25 MG/5 ML VIAL 5 MG IVP (11:17)
[2025-02-16] MEDS: Apixaban 5 MG TAB PO ×2 (11:17→20:08)
[2025-02-16] MEDS: dilTIAZem 125 MG in Normal Saline 100 ML IV (11:17)
--- NOTE | 2025-02-16 11:27 | W.ED.GENAD ---
Discharge Plan Disposition Patient Disposition: Admit to [facility] Condition: Serious Discharge Details Clinical Impression: Atrial fibrillation with rapid ventricular response, Hypertension Primary Care Provider: Stephany Brantley ED Provider: Chao Balderrama Home Meds and New Rx's Prescriptions: No Action atorvastatin 20 mg tablet 20 mg PO DAILY ibuprofen 200 mg tablet 200 mg PO PRN Multi Complete with Iron 18-400 mg-mcg tablet 1 tab PO DAILY HPI General Mode of arrival: ambulatory. Date/Time Provider Initiated Documentation: 02/16/25 09:54. Limitations to Documentation: no limitations. Information obtained by: patient. HPI Narrative: HISTORY OF PRESENT ILLNESS The patient presents to the ER for atrial fibrillation, accompanied by her . She was scheduled for a routine colonoscopy today, and during preoperative. She was found to be in A-fib. She reports no history of atrial fibrillation, stroke, palpitations, chest pain, shortness of breath, swelling, blood in stool, or black tarry stools. No known thyroid issues. Anesthesia team notes that patient's heart rate was ranging from 90s to 140s. Related Data Home Medications ?Medication ?Instructions ?Recorded ?Confirmed ibuprofen 200 mg tablet 200 mg PO PRN 05/04/19 02/16/25 atorvastatin 20 mg tablet 20 mg PO DAILY 02/21/24 02/16/25 multivitamin-ferrous 1 tab PO DAILY 01/11/25 02/16/25 fumarate-folic acid 18 mg-400 mcg tablet (Multi Complete with Iron) Allergies Allergy/AdvReac Type Severity Reaction Status Date / Time No Known Allergies Allergy Verified 02/16/25 10:00 General Stated Complaint: Palpitatns DELROY: 3 Review of Systems All systems reviewed & are unremarkable except as noted in HPI and below Exam Const General: cooperative and no acute distress HENMT Mouth: moist mucous membranes Eyes Conjunctivae: normal conjunctivae Sclera: normal sclerae Neck Neck: trachea midline and supple Resp Auscultation: clear to auscultation bilaterally, no rales, no rhonchi and no wheezes Cardio Rate: tachycardic Rhythm: abnormal rhythm GI Palpation: soft, not firm, no guarding, no masses, not rigid and nontender Skin General skin exam: no rashes or lesions noted Neuro General: patient alert, patient awake and tone normal Extrem General: no calf tenderness and no edema Psych Appearance: grossly normal Mental Status: mental status grossly normal Course Vital Signs Vital signs: Vital Signs Temperature 37.0 C 02/16/25 09:54 Pulse 108 H 02/16/25 09:54 Respiratory Rate 18 02/16/25 09:54 Blood Pressure 187/97 H 02/16/25 09:54 Pulse Oximetry 97 02/16/25 09:54 Temperature 37.0 C 02/16/25 09:54 Temperature Source Oral 02/16/25 09:54 Pulse 102 H 02/16/25 11:17 Pulse 101 H 02/16/25 10:20 Respiratory Rate 19 02/16/25 10:20 Blood Pressure 152/76 H 02/16/25 11:17 Blood Pressure Mean 119 02/16/25 10:02 Blood Pressure Position Supine 02/16/25 09:54 Pulse Oximetry 96 02/16/25 10:20 Oxygen Delivery Method Room Air 02/16/25 09:54 Oxygen Flow Rate 0 02/16/25 09:54 Pain Level 0 02/16/25 10:28 Lab/Test Results Lab/Test Results: Laboratory Tests Range/Units 02/16/25 10:23 WBC (4.4-10.8) 10^3/uL 5.10 RBC (3.93-5.22) 10^6/uL 4.52 Hgb (11.2-15.7) g/dL 14.8 Hct (36.0-46.0) % 42.3 MCV (80-95) fL 94 MCH (27.0-33.0) pg 32.7 MCHC (32.0-36.0) % 35.0 RDW (11.7-14.6) % 12.1 Plt Count (130-400) 10^3/uL 211 MPV (8.0-11.0) fL 9.4 Immature Gran % % 0.2 Neutrophils % % 58.1 Lymphocytes % % 33.1 Monocytes % % 5.5 Eosinophils % % 2.5 Basophils % % 0.6 Nucleated RBC % (0.0-0.3) % 0.0 Absolute Neutrophils (1.2-6.7) 10^3/uL 2.96 Absolute Lymphocytes (1.2-3.4) 10^3/uL 1.69 Absolute Monocytes (0.1-0.8) 10^3/uL 0.28 Absolute Eosinophils (0.0-0.7) 10^3/uL 0.13 Absolute Basophils (0.0-0.2) 10^3/uL 0.03 Sodium Cancelled Potassium Cancelled Chloride Cancelled Carbon Dioxide Cancelled Anion Gap Cancelled BUN Cancelled Creatinine Cancelled Est GFR (CKD-EPI 2020) Cancelled Glucose Cancelled Calcium Cancelled Total Bilirubin Cancelled AST Cancelled ALT Cancelled Alkaline Phosphatase Cancelled Troponin I Cancelled Total Protein Cancelled Albumin Cancelled TSH Cancelled Medical Decision Making ASSESSMENT AND PLAN Initial Assessment: Patient presents with asymptomatic, new onset atrial fibrillation, heart rate fluctuating between 90s and 100, with occasional spikes up to 140. Patient is hypertensive. She is saturating well in no respiratory distress. Discussed potential causes, including electrolyte imbalance due to diarrhea. Explained risks such as stroke. ED Course: - EKG performed in preoperative unit was reviewed: A-fib with RVR 107 bpm. - Bedside compensation and benefits administrator was reviewed by me: Patient heart rate ranging from upper 90s to 140 - Plan to initiate treatment with diltiazem IV push and infusion. I will initiate prophylactic anticoagulant Eliquis. - Admitting for further management, including rate control and anticoagulation therapy. - Initial light dose of medication to assess response. - Evaluating thyroid function and electrolyte levels. - Patient reassessed and heart rate improving on diltiazem infusion. Final Assessment: Patient transferred to ED from preop colonoscopy for new onset atrial fibrillation management, including rate control and anticoagulation therapy. Initial light dose of medication administered to assess response. Thyroid function and electrolyte levels being evaluated. Clinical Impression: - Atrial fibrillation with RVR Disposition: - Admission: Patient to be admitted for further management. MDM Components Evaluation: - Number of Differential Diagnoses or Management Options: Electrolyte imbalance due to diarrhea. - Amount and Complexity of Data Reviewed: Thyroid function tests, electrolyte levels. - Risk of Complication and Morbidity or Mortality: Risk of stroke due to atrial fibrillation. This document was written with the assistance of CAROLYN Choi. The patient consented to its use. Lab Data Lab results reviewed: Yes I reviewed the patient's lab results. Labs: Laboratory Tests Range/Units 02/16/25 02/16/25 10:23 11:36 WBC (4.4-10.8) 10^3/uL 5.10 RBC (3.93-5.22) 10^6/uL 4.52 Hgb (11.2-15.7) g/dL 14.8 Hct (36.0-46.0) % 42.3 MCV (80-95) fL 94 MCH (27.0-33.0) pg 32.7 MCHC (32.0-36.0) % 35.0 RDW (11.7-14.6) % 12.1 Plt Count (130-400) 10^3/uL 211 MPV (8.0-11.0) fL 9.4 Immature Gran % % 0.2 Neutrophils % % 58.1 Lymphocytes % % 33.1 Monocytes % % 5.5 Eosinophils % % 2.5 Basophils % % 0.6 Nucleated RBC % (0.0-0.3) % 0.0 Absolute Neutrophils (1.2-6.7) 10^3/uL 2.96 Absolute Lymphocytes (1.2-3.4) 10^3/uL 1.69 Absolute Monocytes (0.1-0.8) 10^3/uL 0.28 Absolute Eosinophils (0.0-0.7) 10^3/uL 0.13 Absolute Basophils (0.0-0.2) 10^3/uL 0.03 Sodium Cancelled 143 Potassium Cancelled 4.1 Chloride Cancelled 106 Carbon Dioxide Cancelled 30.1 Anion Gap Cancelled 6.9 BUN Cancelled 9 Creatinine Cancelled 0.9 Est GFR (CKD-EPI 2020) Cancelled 67.50 Glucose Cancelled 101 Calcium Cancelled 9.4 Magnesium (1.8-2.4) mg/dL 1.9 Total Bilirubin Cancelled 1.3 H AST Cancelled 23 ALT Cancelled 36 Alkaline Phosphatase Cancelled 79 Troponin I Cancelled 34 Total Protein Cancelled 7.7 Albumin Cancelled 4.1 TSH Cancelled 1.43 Quality:SDOH Health Related Social Needs: No Data to Display Critical Care Time Critical Care Time Critical Care Time: Yes Total Critical Care Time: 45 Attestation: Due to a high probability of clinically significant, life threatening deterioration, the patient required my highest level of preparedness to intervene emergently and I personally spent this critical care time directly and personally managing the patient. This critical care time included obtaining a history; examining the patient; pulse oximetry; ordering and review of studies; arranging urgent treatment with development of a management plan; evaluation of patient's response to treatment; frequent reassessment; and, discussions with other providers. This critical care time was performed to assess and manage the high probability of imminent, life-threatening deterioration that could result in multi-organ failure. It was exclusive of separately billable procedures and treating other patients and teaching time. Please see MDM section and the rest of the note for further information on patient assessment and treatment. PFSH All Active Problems Hypertension (Chronic) Atrial fibrillation with rapid ventricular response (Acute) Encounter for screening colonoscopy (Acute) Trochanteric bursitis, left hip (Acute) DEPO MEDROL 02/21/24 History of colonoscopy (Chronic ~05/15/19) 05/08- tubular adenoma x2 Medical History Colorectal polyps (~05/15/19) Hyperlipidemia Surgical History Ligation of fallopian tube Extraction of cataract bilat Family History Mother Diabetes CHF (congestive heart failure) Father Diabetes Essential hypertension CHF (congestive heart failure) Social History Smoking/Tobacco Use Status: Former Tobacco Use Smoking risk assessment performed?: Yes Alcohol Intake: current Alcohol Intake frequency: 0-2 drinks per day Alcohol type: hard liquor Drug use: Never Substance use type: does not use Housing: other Do you feel safe at home: Yes Do you feel safe in your relationship?: Yes Additional Social history: Vi
[2025-02-16 11:55] LABS: Magnesium 1.9 mg/dL (1.8-2.4)
[2025-02-16 12:11] LABS: ALT 36 U/L (14-59); AST 23 U/L (15-37); Albumin 4.1 g/dL (3.4-5.0); Alkaline Phosphatase 79 U/L (46-116); Anion Gap 6.9 mmol/L (3-11); BUN 9 mg/dL (7-18); Bilirubin, Total 1.3 mg/dL (0.2-1.0); CO2 30.1 mmol/L (21.0-32.0); CREATININE 0.9 mg/dL (0.55-1.02); Calcium 9.4 mg/dL (8.5-10.1); Chloride 106 mmol/L (98-107); Glucose 101 mg/dL (74-106); Potassium 4.1 mmol/L (3.5-5.1); Sodium 143 mmol/L (136-145); TSH (W/Ref FT4) 1.43 uIU/mL (0.36-3.74); Total Protein 7.7 g/dL (6.4-8.2); Troponin I 34 ng/L (<or=51)
[2025-02-16] MEDS: dilTIAZem 30 MG TAB PO ×2 (12:54→20:07)
--- NOTE | 2025-02-16 12:56 | HPE_ITS ---
Date of service: 02/16/25 Time of Service: 12:56 Assessment and Plan Assessment and plan (1) Atrial fibrillation with rapid ventricular response: Status: Acute Assessment and plan: In setting of colonosocpy prep Rate controlled now on diltiazem drip. Will start oral diltiazem to try to wean off. TSH normal, no ishemia on EKG/troponin Risk factors include daily alcohol use and BMI. She may also be at risk for JOHNATHAN but denies symptoms. We discussed all of these issues. [id number] 2, started on apixaban in ED Echocardiogram was not able to be done today, we can do this as outpatient. Plan d/c when stable off drip. (2) Elevated blood pressure reading without diagnosis of hypertension: Status: Acute Assessment and plan: No h/o HTN in PCP record and gets yearly physicals. Will monitor. (3) Hyperlipidemia: Assessment and plan: continue home statin History of Present Illness History of Present Illness Chief Complaint: tachcardia Narrative: 74 yo female with history of hyperlipidemia and BMI 33 who was sent from same- day surgery where she was found to be in atrial fibrillation with rates up to 140s. She denies symptoms including chest pain, dizziness, palpitations, or shortness of breath. She was a little bit anxious. She was stooling all day yesterday with the colonoscopy prep but does not remember any event where she had new symptoms. She has not had symptoms of infection including fever/chills, cough, runny nose, or sore throat. Lots of watery BMs, but not painful. Urinating normally. No bleeding recently. She last took ibuprofen for GUEVARA 3 days ago. She does have 1-2 alcoholic drinks per day, rarely more. She sometimes snores but no apnea/gasping per her or , sleep is restful. No other drugs or substances. She gets regular care and has never had high blood pressure or other heart issues. Colonoscopy was for follow up on small polyps in 2019. She had not gotten any anesthesia, abdnormal heart rate was noticed on intake. Review of Systems All systems reviewed & are unremarkable except as noted in HPI and below PFSH All Active Problems Elevated blood pressure reading without diagnosis of hypertension (Acute) Atrial fibrillation with rapid ventricular response (Acute) Encounter for screening colonoscopy (Acute) Trochanteric bursitis, left hip (Acute) DEPO MEDROL 02/21/24 History of colonoscopy (Chronic ~05/15/19) 05/08- tubular adenoma x2 Medical History Obesity (BMI 30.0-34.9) Colorectal polyps (~05/15/19) Hyperlipidemia Surgical History Ligation of fallopian tube Extraction of cataract bilat Family History Mother Diabetes CHF (congestive heart failure) Father Diabetes Essential hypertension CHF (congestive heart failure) Social History (Updated 02/16/25 @ 13:00 by Sagar Amos) Smoking/Tobacco Use Status: Former Tobacco Use Smoking risk assessment performed?: Yes Alcohol Intake: current Alcohol Intake frequency: 0-2 drinks per day Alcohol type: hard liquor Drug use: Never Substance use type: does not use Housing: other Do you feel safe at home: Yes Do you feel safe in your relationship?: Yes Additional Social history: carmen [place] Meds Allergies and Home Medications Allergies Allergy/AdvReac Type Severity Reaction Status Date / Time No Known Allergies Allergy Verified 02/16/25 10:00 Home Medications ?Medication ?Instructions ?Recorded ?Confirmed ?Type ibuprofen 200 mg tablet 200 mg PO PRN 05/04/19 02/16/25 History atorvastatin 20 mg tablet 20 mg PO DAILY 02/21/24 02/16/25 History multivitamin-ferrous 1 tab PO DAILY 01/11/25 02/16/25 History fumarate-folic acid 18 mg-400 mcg tablet (Multi Complete with Iron) Exam Narrative Exam Narrative: GEN: Alert and oriented x 4, pleasant and cooperative, gives linear history. No acute distress at rest. HEENT: Head atraumatic. Conjunctiva clear, no icterus. PEERL, EOMI. no rhinorrhea. MMM, OP benign. Neck is supple with no masses or lymphadenopathy, nl thyroid, trachea midline LUNGS: CTAB with normal effort CV: RRR with no murmurs, gallops, or rubs. ABD: active bowel sounds, soft, nontender and nondistended. No masses. EXT: no cyanosis, clubbing, or edema MSK: No joint redness or swelling NEURO: CN 2-12 grossly intact. Normal movement of 4 extremities. Normal speech and coordination. No tremor SKIN: No rashes or open wounds. PSYCH: normal mood and affect, nl thought process Results Imaging EKG: report reviewed and image reviewed (atrial fibrillation, rate 88- 149, nl ischemic changes) Labs 02/16/25 10:23 02/16/25 11:36 Labs: Laboratory Results - last 24 hr 02/16/25 02/16/25 10:23 11:36 WBC 5.10 RBC 4.52 Hgb 14.8 Hct 42.3 MCV 94 MCH 32.7 MCHC 35.0 RDW 12.1 Plt Count 211 MPV 9.4 Immature Gran % 0.2 Neutrophils % 58.1 Lymphocytes % 33.1 Monocytes % 5.5 Eosinophils % 2.5 Basophils % 0.6 Nucleated RBC % 0.0 Absolute Neutrophils 2.96 Absolute Lymphocytes 1.69 Absolute Monocytes 0.28 Absolute Eosinophils 0.13 Absolute Basophils 0.03 Sodium Cancelled 143 Potassium Cancelled 4.1 Chloride Cancelled 106 Carbon Dioxide Cancelled 30.1 Anion Gap Cancelled 6.9 BUN Cancelled 9 Creatinine Cancelled 0.9 Est GFR (CKD-EPI 2020) Cancelled 67.50 Glucose Cancelled 101 Calcium Cancelled 9.4 Magnesium 1.9 Total Bilirubin Cancelled 1.3 H AST Cancelled 23 ALT Cancelled 36 Alkaline Phosphatase Cancelled 79 Troponin I Cancelled 34 Total Protein Cancelled 7.7 Albumin Cancelled 4.1 TSH Cancelled 1.43 Last Vital Signs Temp 37.0 C 02/16/25 09:54 Pulse 86 02/16/25 12:54 Resp 13 02/16/25 12:54 BP 153/60 H 02/16/25 12:54 Pulse Ox 96 02/16/25 12:54 Time Spent Time spent with Patient: 55-74 minutes Time was spent: preparing to see the patient(eg.review tests), obtaining and/or reviewing separately otained hiistory, ordering medications,tests, procedures, referring, communicating with other health family day care worker, indepentently interpreting results, counseling the patient and care coordination
--- NOTE | 2025-02-16 15:34 | PHA.REVIEW2 ---
Pharmacy Admission Review Admission Clinical Review Admission Pharmacy Review: Elevated blood pressure reading without diagnosis of hypertension (Acute) Atrial fibrillation with rapid ventricular response (Acute) No Known Allergies Allergy (Verified 02/16/25 10:00) Resuscitation Status Full Code Height 5 ft 1 in Weight 82.6 kg Pharmacy Admission Review Renal Dosing Renal Dosing: BUN 9 mg/dL (7-18) 02/16/25 11:36 Creatinine 0.9 mg/dL (0.55-1.02) 02/16/25 11:36 Medications needing adjustments: Reviewed (CrCl 48.82 mL/min) List of meds needing interventions: Current medications are okay Anticoagulation Anticoagulation: Hgb 14.8 g/dL (11.2-15.7) 02/16/25 10:23 Hct 42.3 % (36.0-46.0) 02/16/25 10:23 Plt Count 211 10^3/uL (130-400) 02/16/25 10:23 Creatinine 0.9 mg/dL (0.55-1.02) 02/16/25 11:36 DVT Prophylaxis: Reviewed Medications: Apixaban (5mg PO BID - started during this admission for Afib) Relevant Labs Relevant Labs: Sodium 143 mmol/L (136-145) 02/16/25 11:36 Potassium 4.1 mmol/L (3.5-5.1) 02/16/25 11:36 Chloride 106 mmol/L (98-107) 02/16/25 11:36 Magnesium 1.9 mg/dL (1.8-2.4) 02/16/25 11:36 Electrolytes, C-Reactive P, ESR: Reviewed Cardiac Review Cardiac Review: Troponin I 34 ng/L (<or=51) 02/16/25 11:36 BP, HR, EF%: Reviewed (BP 147/77 and HR WNL) List meds needing interventions: Has order for diltiazem infusion running at 5mg/hr and order for diltiazem 30mg TID to start tonight QTc Review QTc: Reviewed (461 from 02/16/25) IV to PO Switch IV Medications: Reviewed (diltiazem infusion) Home Meds Home Med List reviewed: Reviewed Relevent Home Meds Not ordered & why?: ibuprofen (PRN) and multivitamin Current Meds Current Medication Order Review: Intervened Comments: Changed IV ED access
[2025-02-16] MEDS: Normal Saline Flush 10 ML SYR IVP ×2 (16:40→20:08)
[2025-02-17] VITALS (9 sets, daily range): BP systolic 103–152; BP diastolic 54–74; PULSE 60–85; RESP 15–21; TEMP 36.5–36.7; O2SAT 95
[2025-02-17] MEDS: dilTIAZem 30 MG TAB PO (07:57)
[2025-02-17] MEDS: Apixaban 5 MG TAB PO (07:57)
[2025-02-17] MEDS: Atorvastatin 20 MG TAB PO (07:57)
[2025-02-17] MEDS: Normal Saline Flush 10 ML SYR IVP (07:58)
--- NOTE | 2025-02-17 08:44 | INITIAL_ITS ---
Care Management Initial Assmt Initial Assessment Reason for Hospitalization: Atrial fibrillation with RVR Functional Status/Living Situation Patient Presentation: Elaine was ... and visiting with ..., when CM arrived. She presented to the ED after being sent from same-day surgery where she was found to be in asymptomatic, new onset atrial fibrillation, heart rate fluctuating between 90s and 100, with occasional spikes up to 140. Elaine is living Town of Residence: [place] Resides with: Spouse (Cedric- ) Advance Directives Advance Directives: Do you have an Advance Directive: Y 05/09/19 09:00 AD On File at [facility]: N 02/24/19 10:30 Date Asked 02/16/25 02/16/25 09:53 AD Date Reviewed COLST On File at [facility] COLST Date Scanned Code Status Resuscitation Status Full Code Portal Pt does not currently have a portal and education provided: Yes Insurance Coverage/Financial Issues Insurance: [place] [facility] Advantage Care Team Visit Care Team Role Provider Type Demar Jhaveri MD MD [facility] STAFF PHYSICIAN Stephany Brantley MD Primary Care Provider [facility] STAFF PHYSICIAN Chao Balderrama MD Emergency Provider [facility] STAFF PHYSICIAN Sagar Amos Admit Provider [facility] STAFF PHYSICIAN Attending Provider Discharge Potential Discharge Needs: PT Evaluation and PCP F/U Appt Anticipated Barriers to Discharge: Medical Status Patient/Family Education Needs: Review discharge instructions, discuss Ask Me Three Transportation: Private vehicle Plan: Anticipate Elaine will be discharged home with potential new services once medically ready. She will follow up with her community providers and continue per his discharge plan of care. Elaine will be transported via private vehicle by . CM will continue to follow. Social Determinants of Health Screening Social Determinants of health last assessed in clinic: 02/17/25 Will the Patient Participate in the Screening?: Yes Do you worry about having a steady place to live?: no Problems where you live: no known problems In the past 12 months, have you had to go without electric, gas, oil or water in your home?: no 1. Within the past 12 months, we worried whether our food would run out before we got money to buy more.: Never true 2. Within the past 12 months, the food we bought just didn't last and we didn't have money to get more.: Never true Has lack of transportation kept you from medical appointments or from doing things needed for daily living?: no Has anyone in your life made you feel unsafe or unsupported?: no How hard is it for you to pay for the very basics like food, housing, medical care, and heating? Would you say it is:: Not hard at all Do you want help finding or keeping work or a job?: I do not need or want help If for any reason you need help with day-to-day activities such as bathing, preparing meals, shopping, managing finances, etc., do you get the help you need?: I don?t need any help How often do you feel lonely or isolated from those around you?: Never Do you speak a language other than Vincentian at home?: No Does the patient want assistance with any of the above?: No PFSH All Active Problems Elevated blood pressure reading without diagnosis of hypertension (Acute) Atrial fibrillation with rapid ventricular response (Acute) Encounter for screening colonoscopy (Acute) Trochanteric bursitis, left hip (Acute) DEPO MEDROL 02/21/24 History of colonoscopy (Chronic ~05/15/19) 05/08- tubular adenoma x2 Medical History Obesity (BMI 30.0-34.9) Colorectal polyps (~05/15/19) Hyperlipidemia Surgical History Ligation of fallopian tube Extraction of cataract bilat Family History Mother Diabetes CHF (congestive heart failure) Father Diabetes Essential hypertension CHF (congestive heart failure) Social History (Updated 02/16/25 @ 13:00 by Sagar Amos) Smoking/Tobacco Use Status: Former Tobacco Use Smoking risk assessment performed?: Yes Alcohol Intake: current Alcohol Intake frequency: 0-2 drinks per day Alcohol type: hard liquor Drug use: Never Substance use type: does not use Housing: other Do you feel safe at home: Yes Do you feel safe in your relationship?: Yes Additional Social history: carmen [place] in [place] Readmission Within the Past 30 Days Yes or No: No
--- NOTE | 2025-02-17 10:04 | PDOC.CMDIS ---
Date of service: 02/17/25 Time of Service: 10:11 LACE Index Scoring Tool Questions: Length of Stay (in days): 1 Was the patient admitted via the E.D.?: Yes E.D. Visits: 1 Answers: Total Score: 5 Risk of Readmission: Low Risk Care Management Discharge Plan Reason for Hospitalization: Atrial fibrillation Discharge Plan: Elaine will be discharged home today with no new services. She will follow up with her community providers and discharge plan of care. Elaine will be transported via private vehicle by her . Patient/Family Education Needs: Review discharge instructions, activity, limitations and plan of care. Discuss Ask Me Three. SDOH Health Related Social Needs: No Data to Display
--- NOTE | 2025-02-17 10:10 | DSE_ITS ---
Date of service: 02/17/25 Time of Service: 10:10 DS: Diagnosis Discharge Diagnosis (1) Atrial fibrillation with rapid ventricular response: Status: Acute (2) Elevated blood pressure reading without diagnosis of hypertension: Status: Acute (3) Hyperlipidemia: Discharge Plan Disposition Patient Disposition: Home Condition: Stable Discharge Details Reason For Visit: Atrial fibrillation with RVR Admit Date/Time: 02/16/25 12:43 Admit Provider: Sagar Amos Attending Provider: Sagar Amos Primary Care Provider: Stephany Brantley [facility] Hospital Course: pt was admitted for A-fib with RVR and was initially put on a Cardizem drip. The drip was turned off last night around 1999. Since then the patient has had essentially normal heart rate with mild elevations over 100. The patient was anxious to be discharged home and as she was denying any chest pain shortness of breath palpitations we agreed to discharge her home. Most likely the A-fib was due to relative dehydration after her bowel prep. Patient also did have some electrolyte abnormalities and will increase the chances of her A-fib. She will be sent home with Cardizem as well as Mattie. I do recommend a follow-up with cardiology soon as possible as well as outpatient echocardiogram. History of Present Illness Chief Complaint: tachcardia Narrative: 74 yo female with history of hyperlipidemia and BMI 33 who was sent from same- day surgery where she was found to be in atrial fibrillation with rates up to 140s. She denies symptoms including chest pain, dizziness, palpitations, or shortness of breath. She was a little bit anxious. She was stooling all day yesterday with the colonoscopy prep but does not remember any event where she had new symptoms. She has not had symptoms of infection including fever/chills, cough, runny nose, or sore throat. Lots of watery BMs, but not painful. Urinating normally. No bleeding recently. She last took ibuprofen for GUEVARA 3 days ago. She does have 1-2 alcoholic drinks per day, rarely more. She sometimes snores but no apnea/gasping per her or , sleep is restful. No other drugs or substances. She gets regular care and has never had high blood pressure or other heart issues. Colonoscopy was for follow up on small polyps in 2019. She had not gotten any anesthesia, abdnormal heart rate was noticed on intake. assessment and Plan Assessment and plan (1) Atrial fibrillation with rapid ventricular response: Status: Acute Assessment and plan: In setting of colonosocpy prep Rate controlled now on diltiazem drip. Will start oral diltiazem to try to wean off. TSH normal, no ishemia on EKG/troponin Risk factors include daily alcohol use and BMI. She may also be at risk for JOHNATHAN but denies symptoms. We discussed all of these issues. [id number] 2, started on apixaban in ED Echocardiogram was not able to be done today, we can do this as outpatient. Plan d/c when stable off drip. (2) Elevated blood pressure reading without diagnosis of hypertension: Status: Acute Assessment and plan: No h/o HTN in PCP record and gets yearly physicals. Will monitor. (3) Hyperlipidemia: Assessment and plan: continue home statin Home Meds and New Rx's Prescriptions: New diltiazem HCl 30 mg Tablet 30 mg PO TID 30 Days Qty: 90 0RF Eliquis 5 mg Tablet 5 mg PO BID 30 Days Qty: 60 0RF Continued atorvastatin 20 mg tablet 20 mg PO DAILY ibuprofen 200 mg tablet 200 mg PO PRN Multi Complete with Iron 18-400 mg-mcg tablet 1 tab PO DAILY Discharge Instructions Referrals: Ifeoma Maloney MD [ [facility] STAFF PHYSICIAN] - (follow up in 5-7 days) Stephany Brantley MD [Primary Care Provider] - (follow up in 5-7 days) Activity:: Activity as Tolerated Equipment/Supplies:: No Equipment Needed Diet:: As Tolerated Discharge Orders Discharge Orders: Discharge Order (Routine); Ordered 02/17/25 Ordered By: Demar Jhaveri DS: Summary Time Spent with Patient providing and/or coordinating discharge services: Greater than 30 minutes Status at Discharge Functional status at discharge: independent ambulation Overall status at discharge: patient is back to baseline Mental Status: mental status grossly normal Speech and Movement: speech and movement normal Mood: congruent mood Affect: normal affect Quality:SDOH Health Related Social Needs: No Data to Display Exam Narrative Exam Narrative: GEN: Alert and oriented x 4, pleasant and cooperative, gives linear history. No acute distress at rest. HEENT: Head atraumatic. Conjunctiva clear, no icterus. PEERL, EOMI. no rhinorrhea. MMM, OP benign. Neck is supple with no masses or lymphadenopathy, nl thyroid, trachea midline LUNGS: CTAB with normal effort CV: RRR with no murmurs, gallops, or rubs. ABD: active bowel sounds, soft, nontender and nondistended. No masses. EXT: no cyanosis, clubbing, or edema MSK: No joint redness or swelling NEURO: CN 2-12 grossly intact. Normal movement of 4 extremities. Normal speech and coordination. No tremor SKIN: No rashes or open wounds. PSYCH: normal mood and affect, nl thought process Psych Mental Status: mental status grossly normal Speech and Movement: speech and movement normal Mood: congruent mood Affect: normal affect DS: Data Vitals/I&O Vitals and I&O: Vital Signs Temperature 36.7 C 02/17/25 08:10 Temperature Source Tympanic 02/17/25 08:10 Pulse 76 02/17/25 08:01 Pulse 78 02/17/25 08:01 Respiratory Rate 20 02/17/25 08:01 Blood Pressure 152/74 H 02/17/25 08:01 Blood Pressure Mean 91 02/17/25 08:01 Blood Pressure Position Supine 02/16/25 09:54 Pulse Oximetry 95 02/17/25 03:56 Oxygen Delivery Method Room Air 02/17/25 08:10 Oxygen Flow Rate 0 02/17/25 08:10 Pain Level 0 02/17/25 03:56 Comment BP + HR prior to PO Diltiazem admin 02/16/25 12:54 Intake & Output 02/16/25 02/16/25 02/17/25 11:59 23:59 11:59 Intake Total 20 / 303.583 283.583 / 303.583 250 / 250 Output Total 75 / 75 150 / 150 Balance 20 / 228.583 208.583 / 228.583 100 / 100 Weight 85.3 kg 82.6 kg 82.1 kg Intake: IV 20 / 63.583 43.583 / 63.583 0 / 0 Oral 240 / 240 250 / 250 Output: Urine 75 / 75 150 / 150 Other: Urine Color Yellow Dark Sunitha Urine Appearance Clear Clear Urine Odor Strong Data Completed and Pending Labs on day of discharge: Labs from last 24 hours 02/16/25 02/16/25 11:36 10:23 WBC 5.10 RBC 4.52 Hgb 14.8 Hct 42.3 MCV 94 MCH 32.7 MCHC 35.0 RDW 12.1 Plt Count 211 MPV 9.4 Immature Gran % 0.2 Neutrophils % 58.1 Lymphocytes % 33.1 Monocytes % 5.5 Eosinophils % 2.5 Basophils % 0.6 Nucleated RBC % 0.0 Absolute Neutrophils 2.96 Absolute Lymphocytes 1.69 Absolute Monocytes 0.28 Absolute Eosinophils 0.13 Absolute Basophils 0.03 Sodium 143 Cancelled Potassium 4.1 Cancelled Chloride 106 Cancelled Carbon Dioxide 30.1 Cancelled Anion Gap 6.9 Cancelled BUN 9 Cancelled Creatinine 0.9 Cancelled Est GFR (CKD-EPI 2020) 67.50 Cancelled Glucose 101 Cancelled Calcium 9.4 Cancelled Magnesium 1.9 Total Bilirubin 1.3 H Cancelled AST 23 Cancelled ALT 36 Cancelled Alkaline Phosphatase 79 Cancelled Troponin I 34 Cancelled Total Protein 7.7 Cancelled Albumin 4.1 Cancelled TSH 1.43 Cancelled PFSH All Active Problems Elevated blood pressure reading without diagnosis of hypertension (Acute) Atrial fibrillation with rapid ventricular response (Acute) Encounter for screening colonoscopy (Acute) Trochanteric bursitis, left hip (Acute) DEPO MEDROL 02/21/24 History of colonoscopy (Chronic ~05/15/19) 05/08- tubular adenoma x2 Medical History Obesity (BMI 30.0-34.9) Colorectal polyps (~05/15/19) Hyperlipidemia Surgical History Ligation of fallopian tube Extraction of cataract bilat Family History Mother Diabetes CHF (congestive heart failure) Father Diabetes Essential hypertension CHF (congestive heart failure) Social History (Updated 02/16/25 @ 13:00 by Sagar Amos) Smoking/Tobacco Use Status: Former Tobacco Use Smoking risk assessment performed?: Yes Alcohol Intake: current Alcohol Intake frequency: 0-2 drinks per day Alcohol type: hard liquor Drug use: Never Substance use type: does not use Housing: other Do you feel safe at home: Yes Do you feel safe in your relationship?: Yes Additional Social history: carmen [place] in [place] Time Spent with Patient Time Spent with Patient: <45 minutes Time was spent: preparing to see the patient(eg.review tests), obtaining and/or reviewing separately otained hiistory, ordering medications,tests, procedures, referring, communicating with other health care management specialist, indepentently interpreting results, counseling the patient and care coordination
== END 2025-02-17 10:35 | disposition home or self-care (01) | DRG 310 ==
LOC: ER 11:33 → ICU 14:33
PROVIDERS: Admitting Provider Family Medicine; Emergency Provider Student in an Organized Health Care Education/Training Program; PCP Family Medicine; Responsible Provider Hospitalist; Visit Provider Family Medicine
DX: I48.91 Unspecified atrial fibrillation (principal); E86.0 Dehydration; R03.0 Elevated blood-pressure reading, without diagnosis of hypertension; E78.5 Hyperlipidemia, unspecified; M70.62 Trochanteric bursitis, left hip; Z87.891 Personal history of nicotine dependence; T47.4X5A Adverse effect of other laxatives, initial encounter
CPT/HCPCS: 00123; 36415; 80053; 96365; 96366; 99291; 83735; 84443; 84484; 85025; 99222; 99238

== ENCOUNTER 2025-03-05 09:42 | Outpatient (CLI) | payer MEDICARE, SELFPAY | END 2025-03-05 09:43 | disposition home or self-care (01) | PROVIDERS: PCP Physician Assistant; Referring Provider Physician Assistant; Visit Provider Physician Assistant | DX: I48.91 Unspecified atrial fibrillation (principal) | CPT/HCPCS: 93270 ==

== ENCOUNTER 2025-03-15 00:24 | Outpatient (CLI) | payer MEDICARE, SELFPAY ==
--- NOTE | 2025-03-15 | DI.US_ITS ---
APPROVED REPORT EXAM: Comprehensive 2D, Doppler, and color-flow Echocardiogram Patient Location: Out-Patient Cartridge Loading Operator: Kendy Fitch RDCS (AE) Indications: Atrial Fibrillation, New onset Other Information Study Quality: Adequate Conclusion Normal left ventricular wall thickness and chamber size. Ejection fraction is 59%. Wall motion is normal Normal right ventricular size and function Both atria are normal in size There are no structural valvular abnormalities Mild aortic and tricuspid regurgitation Estimated right ventricular systolic pressure is 28 mmHg Patient was in sinus rhythm during the study Wall motion Left Ventricle The left ventricle is normal size. The left ventricular systolic function is normal. The left ventricular ejection fraction is within the normal range. There is normal left ventricular wall thickness. There is normal LV segmental wall motion. There is no ventricular septal defect visualized. LVEF is 59%. Right Ventricle The right ventricle is normal size. The right ventricular systolic function is normal. Atria The left atrium size is normal. The right atrium size is normal. The interatrial septum is intact with no evidence for an atrial septal defect. Aortic Valve The aortic valve is normal in structure. Aortic valve is trileaflet. There is no aortic valvular stenosis. Mild aortic regurgitation. Mitral Valve The mitral valve is normal in structure. No evidence of mitral valve stenosis. Trace mitral regurgitation. Tricuspid Valve The tricuspid valve is normal in structure. There is no tricuspid valve stenosis. Mild tricuspid regurgitation. The RVSP is 28.1 mmHg. Pulmonic Valve The pulmonary valve is normal in structure. There is no pulmonic valvular stenosis. There is no pulmonic valvular regurgitation. Great Vessels The aortic root is normal in size. The ascending aorta is normal in size. Aortic arch is normal in caliber. IVC is normal in size and collapses >50% with inspiration. Pericardium There is no pericardial effusion. 2D Dimensions IVSD d PLAX 1.03 cm F: 0.6-1.0 Ao Root d 3.26 cm F: 2.7 - 3.3 LVPW d PLAX 1.00 cm F: 0.6 - 1.0 Ao Asc Diam d 3.13 cm F: 2.3 - 3.1 LVID d PLAX 4.40 cm F: 3.8 - 5.2 LVDs 2.99 cm F: 2.2 - 3.5 LV EF Teichholz 59.4 % FS 31.35 % LV EDV (Teich) 85.5 mL LV ESV (Teich) 34.7 mL M-Mode TAPSE 2.63 cm (M/F) >1.7 Auto EF LV EDV A4C 74.1 mL LV EDV A2C 93.2 mL LV EDV BP 82.9 mL LV ESV A4C 31.2 mL LV ESV A2C 37.7 mL LV ESV BP 34.7 mL LVEF(%) A4C 57.9 % LVEF(%) A2C 59.6 % LVEF(%) BP 58.2 % LV SV A4C 42.9 ml LV SV A2C 55.5 ml LV SV BP 48.2 ml LV CO A4C 3.1 L/min LV CO A2C 4.3 L/min LV CO BP 3.7 L/min HR A4C 72.00 BPM HR A2C 77.26 BPM LV EDV Index (BP) LA Volume LA Length A4C 4.9 cm LA Length A2C 5.9 cm LA Area A4C s 12.94 cm2 LA Area A2C s 17.48 cm2 LA Vol A4C A-L 29.11 mL LA Vol A2C A-L 43.77 mL LA Vol Biplane A-L 39.3 mL LA Vol/BSA A4C A-L LA Vol/BSA A2C A-L LA Vol/BSA BP A-L 21.7 mL/m2 LA Vol A4C MOD 26.6 mL LA Vol A2C MOD 41.2 mL LA Vol BP MOD 36.3 mL RA Volume RA Area A4C 7.9 cm2 RA ESV A4C (A-L) 14.8mL RA Vol/BSA A4C A-L RA Length A4C 3.6 cm RA ESV A4C (MOD) 14.0mL LV Diastology MV E' medial 0.118 (>0.07 m/s) MV E Vmax 1.22 (0.4-1.3 m/s) MV E/E' MED 10.34 (<14) MV A Vmax 0.75 (0.4-1.3 m/s) MV E' lateral 0.082 (>0.1 m/s) E/A Ratio 1.6 MV E/E' LAT 14.97 (<14) MV E' Average 0.100 m/s MV E/E'(average) 12.23 Aortic Valve AoV Vmax 1.51 m/s LVOT Vmax 1.23 m/s AoV Peak Grad 34.4 mmHg LVOT Peak Grad 6.0 mmHg AoV Area (Vmax) 2.59 cm2 LVOT VTI 0.287 m AoV VTI 0.364 m LVOT Mean Grad 3.0 mmHg AoV Mean Lam. 1.05 m/s LVOT SV 91.22 mL AoV Mean Grad 5.0 mmHg LVOT Diam s 2.00 cm AoV Area (VTI) 2.50 cm2 AV Regurg Peak Gr. 9.09 mmHg Velocity Ratio 0.81 AR Decel Metcalfe 2.1m/sec2 AR DT 1823 msec AR PHT 529 msec AR Vmax 3.86 m/s Mitral Valve MV DT 168 (160-240 msec) MV Vmax TIPS 1.04 m/s MV Mean Grad 2.1 (<2mmHg) MV VTI 0.321 m Pulmonary Valve PV Vmax 0.91 (0.5-1.5 m/s) RVOT Vmax 0.71 m/s PV Peak Grad 3.3 mmHg RVOT Peak Gr. 2.0 mmHg PV Mean Lam 0.63 m/s RVOT VTI 0.178 m PV Mean Grad 1.8 mmHg RVOT Mean Gr. 1.1 mmHg Tricuspid Valve RA Pressure 3.00 mmHg TR Vmax 2.50 m/s TV S' 0.15 m/s TR Peak Grad 25.0 mmHg RVSP (TR) 28.1 mmHg
== END 2025-03-15 00:44 ==
LOC: DI 00:24
PROVIDERS: PCP Physician Assistant; Visit Provider Physician Assistant
DX: I48.91 Unspecified atrial fibrillation (principal)
CPT/HCPCS: 93306

== ENCOUNTER 2025-04-10 07:27 | Outpatient (CLI) | payer MEDICARE, SELFPAY ==
--- NOTE | 2025-04-10 11:42 | W.CARDEVENT ---
Date of service: 04/10/25 Time of Service: 11:42 Cardiac Event Recorder Referring Provider:: Ronny Walden Indications:: Atrial fibrillation Cardiac Event Note: This is a cardiac event monitor. Patient was monitored for 29 days and 12 hours Sinus rhythm was present 65% of the time. Atrial flutter/fibrillation was present for 35%. Overall heart rate was 82 There were occasional premature ventricular contractions. Heart rates when in atrial flutter varied from 75 to a maximum of 173 There were no pauses greater than 3 seconds. It did not appear there were any patient's symptoms
== END 2025-04-10 07:28 | disposition home or self-care (01) ==
LOC: CARDOPNVT 07:27
PROVIDERS: PCP Physician Assistant; Visit Provider Internal Medicine Cardiovascular Disease
DX: I48.91 Unspecified atrial fibrillation (principal); I49.3 Ventricular premature depolarization; I48.92 Unspecified atrial flutter
CPT/HCPCS: 93272